=== PATIENT | male | born 2000 | race Two or more races ===

== ENCOUNTER 2025-08-20 10:40 | Inpatient (IN) | payer OTHER ==
[~2025-08-20] VITALS: Ht 165.1 cm; Wt 75.0 kg
[2025-08-20 11:34] LABS: PLATELET COUNT, AUTOMATED 301 10^3/uL (150-450)
[2025-08-20 11:59] LABS: AMPHETAMINES LEVEL URINE NEGATIVE (NEGATIVE); BARBITURATES URINE NEGATIVE (NEGATIVE); BENZODIAZEPINES URINE NEGATIVE (NEGATIVE); COCAINE METABOLITE URINE NEGATIVE (NEGATIVE); METHADONE URINE NEGATIVE (NEGATIVE); OPIATES URINE NEGATIVE (NEGATIVE)
[2025-08-20 12:00] LABS: CANNABINOIDS URINE NEGATIVE (NEGATIVE); PHENCYCLIDINE URINE NEGATIVE (NEGATIVE)
[2025-08-20 12:03] LABS: ETHYL ALCOHOL (ETHANOL) < 0.003 % (0.000-0.010)
[2025-08-20 12:05] LABS: ALT/SGPT 104 U/L (7.0-40); AST/SGOT 44 U/L (<34); CALCIUM LEVEL 9.2 MG/DL (8.5-10.1); CARBON DIOXIDE LEVEL 25 MMOL/L (20-31); CHLORIDE LEVEL 104 MMOL/L (98-107); CREATININE FOR GFR 0.72 MG/DL (0.70-1.30); GLOMERULAR FILTRATION RATE > 90.0 (>60); POTASSIUM SERUM 4.1 MMOL/L (3.5-5.1); SALICYLATE LEVEL < 3.0 MG/DL (<30); SODIUM LEVEL 138 MMOL/L (136-145)
[2025-08-20] MEDS ORDERED: HALOPERIDOL 5 MG TAB PO PRN (13:20)
[2025-08-20] MEDS ORDERED: MAALOX 30 ML SUSP *UDC PO PRN (13:20)
[2025-08-20] MEDS ORDERED: LORazepam 1 MG TAB PO PRN (13:20)
[2025-08-20] MEDS ORDERED: OLANZapine 5 MG TAB PO PRN (13:20)
[2025-08-20] MEDS ORDERED: IBUPROFEN 400 MG TAB PO PRN (13:20)
[2025-08-20] MEDS ORDERED: ACETAMINOPHEN 325 MG TAB PO PRN (13:20)
[2025-08-20] MEDS ORDERED: MOM 30 ML SUSPENSION UDC PO PRN (13:20)
[2025-08-20] MEDS: NICOTINE 14 MG/24 HR TRANSDERMAL TD SCH (13:37)
[2025-08-20 14:15] VITALS: BP 133/84; TEMP 97.9; O2SAT 99
[2025-08-20] MEDS ORDERED: HOME MED LIST COMPLETE! XX SCH (14:20)
[2025-08-21 06:27] VITALS: BP 123/78; TEMP 97.4; O2SAT 97
[2025-08-21 15:13] VITALS: BP 144/75; TEMP 98; O2SAT 98
[2025-08-21] MEDS: traZODone 50 MG TAB PO PRN (20:22)
[2025-08-21] MEDS ORDERED: RAMELTEON 8 MG TAB PO PRN (21:20)
[2025-08-22 06:41] VITALS: BP 129/71; TEMP 97.3; O2SAT 98
[2025-08-22 15:06] VITALS: BP 128/82; TEMP 97.6; O2SAT 95
[2025-08-22] MEDS: RAMELTEON 8 MG TAB PO SCH (20:42)
[2025-08-23 06:18] VITALS: BP 133/76; TEMP 97.5; O2SAT 98
[2025-08-23] MEDS ORDERED: RAME8TAB2 PO (08:41)
[2025-08-23] MEDS ORDERED: FLUO-290 PO (08:41)
== END 2025-08-23 09:52 | disposition home or self-care (01) | DRG 881 ==
LOC: EDBD 10:40 → M ED 10:40 → M ED INP 13:18 → M PSY 14:32
PROVIDERS: ADMIT Internal Medicine; ATTEND Psychiatry & Neurology Psychiatry
DX: F32.A Depression, unspecified (principal); R45.851 Suicidal ideations; G47.00 Insomnia, unspecified; F41.9 Anxiety disorder, unspecified